=== PATIENT | male | born 1950 | race Caucasian/White ===

== ENCOUNTER 2019-05-08 11:07 | Emergency (ER) | payer OTHER ==
[~2019-05-08] VITALS: Ht 172.7 cm; Wt 81.7 kg
[2019-05-08 11:29] LABS: ABSOLUTE NEUTROPHILS 5.4 thou/uL (1.4-8.2); BASOPHILS 1.1 % (0.0-2.0); EOSINOPHILS 3.2 % (0.0-3.0); HEMATOCRIT 41.2 % (42.0-52.0); HEMOGLOBIN 14.6 gm/dL (14.0-18.0); LYMPHOCYTES 26.9 % (24.0-44.0); MCH 32.7 pg (26.0-34.0); MCHC 35.3 g/dL (28.0-37.0); MCV 92.5 fL (80.0-100.0); MONOCYTES 7.8 % (1.0-8.0); PLATELET COUNT 199 thou/uL (150-400); RBC 4.46 mil/uL (4.50-6.00); RDW 13.1 % (10.5-14.5); WBC 8.9 thou/uL (4.0-11.0)
[2019-05-08 11:38] LABS: ANION GAP 9 mmol/L (7-16); BUN 11 mg/dL (7-18); CALCIUM 9.3 mg/dL (8.5-10.1); CHLORIDE 103 mmol/L (98-107); CO2 26 mmol/L (21-32); CREATININE 0.9 mg/dL (0.7-1.3); GLUCOSE 171 mg/dL (74-106); POTASSIUM 4.6 mmol/L (3.5-5.1); SODIUM 138 mmol/L (136-145)
[2019-05-08 11:48] LABS: SGOT 26 U/L (15-37); SGPT 41 U/L (30-65); TOTAL BILIRUBIN 0.5 mg/dL (<0.1-1.0); TOTAL PROTEIN 7.3 g/dL (6.4-8.2); TROPONIN-I <0.06 ng/mL (<0.06)
[2019-05-08 14:25] VITALS: BP 131/79
--- NOTE | 2019-05-09 16:18 | EKG ---
[place] [address] [facility] [place] [address] ELECTROCARDIOGRAM REPORT Name: FLAKITA RANDOLPHLEY GENE Room #: DEP PINEDA Hackett#: [id number] Admission: 05/08/19 Attend Phys: Discharge: 05/08/19 Date of : 54 Report #: [id number] THIS REPORT FOR: //name// [facility] ED Test Date: 2019-05-08 Test Time: 11:07:34 Pat Name: WAQAS RANDOLPH Department: Room: Gender: M Microbiology Quality Control Technician: KF : [id number] Requested By: Tara Dueñas Order Number: [id number] MD: Raymundo Ku Measurements Intervals [place] Rate: 62 P: 49 WI: 145 QRS: 41 QRSD: 107 T: 55 QT: 381 QTc: 387 Interpretive Statements Sinus rhythm left atrial enlargement Early transition Baseline artifact nonspecific ST-T wave changes Compared to ECG 02/28/2006 05:14:38 Sinus bradycardia no longer present Electronically Signed On 05-09-2019 16:17:34 [employer] EQUIPMENT OPERATOR by Raymundo Ku [email or web address] <ELECTRONICALLY SIGNED> By: Raymundo Ku MD 05/09/19 1617 06 06 Raymundo Ku MD /EPI
== END 2019-05-08 14:38 | disposition home or self-care (01) ==
LOC: ER 11:07
PROVIDERS: Emergency Medicine
DX: R07.89 Other chest pain (principal); M79.662 Pain in left lower leg; R53.83 Other fatigue; E11.9 Type 2 diabetes mellitus without complications; Z86.718 Personal history of other venous thrombosis and embolism